=== PATIENT | male | born 1955 | race Caucasian/White ===

== ENCOUNTER → 2016-08-22 | Outpatient (CLI) | payer BC ==
--- NOTE | 2016-08-22 12:23 | EKG ---
[address] [address] Measurements Intervals [place] Rate: 95 P: 4 MT: 146 QRS: -16 QRSD: 111 T: 66 QT: 346 QTc: 399 Interpretive Statements SINUS RHYTHM MODERATE INTRAVENTRICULAR CONDUCTION DELAY No previous ECG available for comparison Electronically Signed On 08-22-16 12:38:25 MST by Ramana Betancourt [id number]
== END ==
LOC: MOB EKG 11:52
PROVIDERS: ATTEND Nurse Practitioner Family
DX: I49.9 Cardiac arrhythmia, unspecified (principal); I45.89 Other specified conduction disorders
CPT/HCPCS: 36415; 83735; 84484; 93005; 93010

== ENCOUNTER → 2016-08-23 | Outpatient (CLI) | payer BC ==
--- NOTE | 2016-08-25 13:48 | HOLTER ---
[facility] [place] Interpretive Statements This is a 48 hour Holter study done for "irregular heartbeat." There is a diary which reports 6 episodes of "Event watching TV" (twice), "Event Supper", "Event Bed", "Event Got Up", and "Event Driving." Respectively these "Events" correlate with: NSR at 78 BPM and no ectopics, NSR at 94 BPM with no ectopics, NSR at 101 BPM with two isolated unifocal VPCs, NSR at 95 BPM with two possible fusion beats, NSR at 84 BPM without ectopics, and NSR at 107 BPM without ectopy. There were 4,370 possible ventricular ectopics with all singlets except for 5 couplets. Ventricular ectopics were clustered between 4AM and 8 AM and also 4 PM to 8 PM. There were multiple prolonged episodes of Ventricular trigeminy also in the 4 to 8 PM time frame and one episode lasted 1:48 with 357 total episodes. There was no V-tach and only one R on T VPC. There were 27 possible atrial ectopics with all being singlets except for 3 pairs. There were 131,939 total beats recorded with the maximal rate being 126 BPM and no significant bradycardias or pauses. ST and QTc analyses were essentially normal. IMPRESSION: Poor correlation of reported symptoms with ectopy but abnormal episodes of ventricular trigeminy grouped at two four hour intervals. Medication effects may be involved. Consider cardiology consult. Electronically Signed On 08-26-16 13:31:48 MST by Shreyas El MD [id number]
== END ==
LOC: RT 11:40
PROVIDERS: ATTEND Family Medicine
DX: I49.9 Cardiac arrhythmia, unspecified (principal); I10 Essential (primary) hypertension
CPT/HCPCS: 93225; 93226; 93227

== ENCOUNTER → 2016-09-13 | Outpatient (CLI) | payer BC ==
--- NOTE | 2016-09-13 12:10 | STRESSTEST ---
[facility] [place] Interpretive Statements Patient exercised according to Domenico protocol for 6.4 min, his baseline BP was 126/74, heart rate was 80, baseline EKG showed normal sinus rhythm with one extraventricular beat and incompete RBBB, maximum heart rate was 139 which is 87% of the predicted, maximum BP was 183/72, no chest pain during the test which was stopped because of fatigue. Mets 7.7. there was some baseline interference but overall I dont see significant EKG changes., Conclusions Reduced exercise tolerance but otherwise the test is negative. Electronically Signed On 09-14-16 13:43:42 MST by Shreyas El MD [id number]
== END ==
LOC: US 07:57
PROVIDERS: ATTEND Specialist
DX: I49.3 Ventricular premature depolarization (principal); I10 Essential (primary) hypertension; I45.19 Other right bundle-branch block; F17.220 Nicotine dependence, chewing tobacco, uncomplicated
CPT/HCPCS: 93016; 93017; 93018; 93306

== ENCOUNTER → 2016-12-12 | Outpatient (CLI) | payer BC ==
[2016-12-12 12:38] LABS: BILIRUBIN,URINE NEGATIVE (NEG); CLARITY,URINE CLEAR (CLEAR); COLOR,URINE YELLOW; GLUCOSE, URINE (UA) 250 mg/dL (NEG); NITRATE,URINE NEGATIVE (NEG); OCCULT BLOOD,URINE NEGATIVE (NEG); PROTEIN,URINE TRACE mg/dl (NEG); URINE SAMPLE TYPE CLEAN CATCH URINE; UROBILINOGEN,URINE 0.2 EU/dL (0.2)
[2016-12-12 12:39] LABS: URINE SPECIFIC GRAVITY - MAN 1.027
== END ==
LOC: LAB 12:21
PROVIDERS: ATTEND Urology
DX: R39.15 Urgency of urination (principal)
CPT/HCPCS: 81003; 87088

== ENCOUNTER → 2017-01-05 | Outpatient (CLI) | payer BC ==
[2017-01-05 08:31] LABS: BASOPHILS # (AUTO) 0.03 10*3/UL; BASOPHILS % (AUTO) 0.5 % (0-1); EOSINOPHILS # (AUTO) 0.31 10*3/UL; HEMOGLOBIN 14.7 g/dL (14.0-18.0); LYMPHOCYTES # (AUTO) 2.24 10*3/uL; MEAN CORPUSCULAR HEMOGLOBIN 30.4 PG (27-31); MEAN CORPUSCULAR HGB CONC 33.4 g/dL (33-37); MEAN CORPUSCULAR VOLUME 90.9 FL (80-90); MEAN PLATELET VOLUME 10.4 FL (7.4-12.2); MONOCYTES # (AUTO) 0.39 10*3/UL (0.3-0.8); MONOCYTES % (AUTO) 6.3 % (5-15); NEUTROPHILS # (AUTO) 3.24 10*3/UL; NEUTROPHILS % (AUTO) 52.1 % (50-80); PLATELET MORPHOLOGY COMMENT NORMAL MORPHOLOGY (NORM); RBC MORPHOLOGY COMMENT NORMAL MORPHOLOGY (NORM); RED BLOOD COUNT 4.84 10^6/uL (4.70-6.10); WBC MORPHOLOGY COMMENT NORMAL MORPHOLOGY (NORM)
[2017-01-05 08:42] LABS: HEMOGLOBIN A1C 6.43 % (4.2-6.0)
--- NOTE | 2017-01-05 08:53 | EKG ---
[address] [address] Measurements Intervals [place] Rate: 75 P: -19 [place]: 148 QRS: -2 QRSD: 110 T: 64 QT: 380 QTc: 408 Interpretive Statements SINUS RHYTHM WITH SINUS ARRHYTHMIA Compared to ECG 08/22/2016 12:25:14 Intraventricular conduction delay no longer present Electronically Signed On 01-09-17 09:59:31 MDT by Shreyas El MD [id number]
[2017-01-05 09:04] LABS: BLOOD UREA NITROGEN 12 mg/dL (7-22); BUN/CREATININE RATIO 17.14 (6-20); CALCIUM 9.7 mg/dL (8.7-10.7); EST GLOMERULAR FILTRATION > 60 (>60 ml/min/1.73m(2))
== END ==
LOC: LAB 08:02
PROVIDERS: ATTEND Urology
DX: C61 Malignant neoplasm of prostate (principal); E11.9 Type 2 diabetes mellitus without complications
CPT/HCPCS: 36415; 80048; 83036; 85025; 93005; 93010

== ENCOUNTER → 2017-02-21 | Outpatient (CLI) | payer BC ==
--- NOTE | 2017-02-21 09:58 | EKG ---
[address] [address] Measurements Intervals [place] Rate: 94 P: -13 [place]: 143 QRS: -5 QRSD: 108 T: 55 QT: 348 QTc: 399 Interpretive Statements SINUS RHYTHM Compared to ECG 01/05/2017 08:43:17 Sinus arrhythmia no longer present Electronically Signed On 02-21-17 11:18:10 MDT by Shreyas El MD [id number]
== END ==
LOC: MOB EKG 09:41
PROVIDERS: ATTEND Specialist
DX: I49.9 Cardiac arrhythmia, unspecified (principal); I49.3 Ventricular premature depolarization; I10 Essential (primary) hypertension
CPT/HCPCS: 93005; 93010

== ENCOUNTER → 2017-02-28 | Outpatient (CLI) | payer BC ==
[2017-02-28 08:20] LABS: CHOL/HDL RATIO 3.55 RATIO (0-4.0); HEMOGLOBIN A1C 6.13 % (4.2-6.0); LDL CHOLESTEROL,CALCULATED 63.2 mg/dL
[2017-02-28 10:40] LABS: CREATININE, URINE 138.2 MG/DL (15-500)
== END ==
LOC: LAB 07:47
PROVIDERS: ATTEND Family Medicine
DX: E11.9 Type 2 diabetes mellitus without complications (principal); E78.5 Hyperlipidemia, unspecified; I10 Essential (primary) hypertension; Z72.0 Tobacco use
CPT/HCPCS: 36415; 80061; 82043; 83036

== ENCOUNTER → 2017-03-28 | Outpatient (CLI) | payer BC | LOC: LAB 08:18 | PROVIDERS: ATTEND Urology | DX: C61 Malignant neoplasm of prostate (principal) | CPT/HCPCS: 36415; 84153 ==